=== PATIENT | female | born 1965 | race Caucasian/White ===

== ENCOUNTER 2021-08-21 20:42 | Emergency (ER) | payer OTHER ==
[2021-08-21 21:21] VITALS: BMI 34.4
[2021-08-21] MEDS ORDERED: SODIUM CHLORIDE 1,000 ML IV STA (23:37)
[2021-08-22 01:02] LABS: BASO % 0.4 % (0-2.0); EOS % 1.5 % (0-4.5); HEMATOCRIT 40.4 % (32.4-45.2); HEMOGLOBIN 13.7 GM/dL (10.7-15.3); LYMPH % 43.1 % (8-40); MCH 27.1 pg (25.7-33.7); MCHC 33.9 g/dl (32.0-36.0); MEAN CELL VOLUME 79.9 fl (80-96); MEAN PLT VOLUME 7.6 fl (7.5-11.1); MONO % 9.1 % (3.8-10.2); NEUT % 45.9 % (42.8-82.8); PLATELET COUNT 319 10^3/uL (134-434); RBC 5.06 M/mm3 (3.60-5.2); RDW 12.4 % (11.6-15.6); WHITE BLOOD COUNT 6.1 K/mm3 (4.0-10.0)
[2021-08-22 01:17] LABS: CHLORIDE 102 mmol/L (98-107); SODIUM 135 mmol/L (136-145)
[2021-08-22 01:20] LABS: CALCIUM 8.5 mg/dL (8.5-10.1)
[2021-08-22 01:21] LABS: ALBUMIN 3.6 g/dl (3.4-5.0); ANION GAP 7 MMOL/L (8-16); BLOOD UREA NITROGEN 9.3 mg/dL (7-18); CO2 26 mmol/L (21-32); GLUCOSE,RANDOM 90 mg/dL (74-106); LIPASE 117 U/L (73-393)
[2021-08-22 01:23] LABS: SGPT/ALT 50 U/L (13-61)
[2021-08-22 01:24] LABS: CREATININE 0.9 mg/dL (0.55-1.3); SGOT/AST 28 U/L (15-37)
[2021-08-22 01:26] LABS: ALK PHOS 64 U/L (45-117)
[2021-08-22 02:51] LABS: EPI CELLS 16 /uL (0-25.1); HYALINE CASTS 0 /uL (0-3.1); URINE APPEARANCE CLEAR; URINE BACTERIA 168 /uL (0-1359); URINE BILIRUBIN NEGATIVE (NEGATIVE); URINE COLOR YELLOW; URINE GLUCOSE (UA) NEGATIVE (NEGATIVE); URINE KETONE NEGATIVE (NEGATIVE); URINE LEUK ESTERASE 1+ (NEGATIVE); URINE NITRITE NEGATIVE (NEGATIVE); URINE PROTEIN NEGATIVE (NEGATIVE); URINE RBC 1 /uL (0-23.9); URINE UROBILINOGEN 0.2 mg/dL (0.2-1.0); URINE WBC 16 /uL (0-25.8)
[2021-08-22 04:51] VITALS: BP 133/81; PULSE 77; TEMP 98.6
== END 2021-08-22 05:48 | disposition home or self-care (01) ==
LOC: JER 20:42
PROC: 3E0337Z Introduction of Electrolytic and Water Balance Substance into Peripheral Vein, Percutaneous Approach (ICD-10-PCS; principal; 2021-08-21)
DX: U07.1 COVID-19 (principal); R09.1 Pleurisy; R53.81 Other malaise
CPT/HCPCS: 36415; 71046-TC-FY; 71275-TC; 80053; 81003; 83690; 84484; 85025; 87086; 93005; 93010; 99285-25; Q9967